=== PATIENT | male | born 1990 | race Caucasian/White ===

== ENCOUNTER 2019-07-28 01:17 | Emergency (ER) | payer OTHER ==
[~2019-07-28] VITALS: Ht 172.7 cm; Wt 81.8 kg
[2019-07-28 01:22] VITALS: BP 148/77; PULSE 105; TEMP 97.5
[2019-07-28] MEDS ORDERED: CEPHALEXIN500 M1 PO (01:57)
== END 2019-07-28 02:06 | disposition home or self-care (01) ==
LOC: COL.ER 01:17
DX: S61.012A Laceration without foreign body of left thumb without damage to nail, initial encounter (principal); W26.8XXA Contact with other sharp object(s), not elsewhere classified, initial encounter; Y93.I9 Activity, other involving external motion